=== PATIENT | female | born 1985 | race Caucasian/White ===

== ENCOUNTER 2018-09-13 17:12 | Emergency (ER) | payer OTHER ==
[2018-09-13] MEDS: DEXAMETHASONE 10 MG/ML 1 ML INJ IM (19:34)
[2018-09-13] MEDS: KETOROLAC 60 MG INJ IM (19:34)
[2018-09-13] MEDS: HYDROCODONE/APAP (10/325) TAB PO (19:34)
[2018-09-13] MEDS: CLINDAMYCIN 300 MG CAP PO (19:43)
== END 2018-09-13 20:34 | disposition home or self-care (01) ==
LOC: FTE 17:12
DX: K08.89 Other specified disorders of teeth and supporting structures (principal); K08.59 Other unsatisfactory restoration of tooth
CPT/HCPCS: 81025; 96372; 99284-25